=== PATIENT | male | born 1955 | race African-American/Black ===

== ENCOUNTER 2017-01-09 03:28 | Emergency (ER) | payer MEDICAID ==
[~2017-01-09] VITALS: Ht 182.9 cm; Wt 73.0 kg
[2017-01-09 03:46] VITALS: BP 131/62
[2017-01-09] MEDS ORDERED: IPRATROPIUM/ALBUTEROL 0.5-3(2.5)MG/3ML NEB HHN ONE ×2 (05:45→06:00)
== END 2017-01-09 07:14 | disposition home or self-care (01) ==
LOC: ER 05:50
DX: J45.901 Unspecified asthma with (acute) exacerbation (principal); Z99.81 Dependence on supplemental oxygen; J93.9 Pneumothorax, unspecified; Z98.890 Other specified postprocedural states
CPT/HCPCS: 94640; 99283; J7620

== ENCOUNTER 2017-03-20 13:40 | Emergency (ER) | payer MEDICAID ==
[~2017-03-20] VITALS: Ht 182.9 cm; Wt 73.0 kg
[2017-03-20] MEDS ORDERED: ALBU05 IH (13:46)
[2017-03-20] MEDS ORDERED: ALBUTEROL (0.083%) 2.5MG/3ML NEB HHN STA (18:10)
[2017-03-20] MEDS ORDERED: IPRATROPIUM BROMIDE (0.02%) 0.5MG/2.5ML NEB HHN STA (18:10)
[2017-03-20] MEDS ORDERED: PREDNISONE 20MG TABLET PO STA (18:10)
[2017-03-20 20:48] VITALS: BP 136/68
== END 2017-03-20 20:40 | disposition home or self-care (01) ==
LOC: ER 13:40
DX: J45.901 Unspecified asthma with (acute) exacerbation (principal)
CPT/HCPCS: 71010; 94640; 99283; J7512; J7611

== ENCOUNTER 2017-06-07 00:53 | Emergency (ER) | payer MEDICAID ==
[~2017-06-07] VITALS: Ht 182.9 cm; Wt 72.0 kg
[~2017-06-07 00:53] MED LIST: ALBU05 IH
[2017-06-07] MEDS ORDERED: IPRATROPIUM BROMIDE (0.02%) 0.5MG/2.5ML NEB HHN STA (01:04)
[2017-06-07] MEDS ORDERED: PREDNISONE 20MG TABLET PO STA (01:04)
[2017-06-07] MEDS ORDERED: ALBUTEROL (0.083%) 2.5MG/3ML NEB HHN STA (01:04)
[2017-06-07] MEDS ORDERED: IPRATROPIUM/ALBUTEROL 0.5-3(2.5)MG/3ML NEB HHN ONE (04:45)
[2017-06-07 05:30] VITALS: BP 109/67
== END 2017-06-07 06:40 | disposition home or self-care (01) ==
LOC: ER 00:53
DX: J45.901 Unspecified asthma with (acute) exacerbation (principal)
CPT/HCPCS: 71010; 94640; 99284; J7512; J7611; J7620; Z7610

== ENCOUNTER 2017-06-17 12:57 | Emergency (ER) | payer MEDICAID ==
[~2017-06-17] VITALS: Ht 182.9 cm; Wt 73.0 kg
[2017-06-17 13:11] VITALS: BP 132/72
== END 2017-06-17 14:37 | disposition left against medical advice (07) ==
LOC: ER 13:53
DX: Z53.21 Procedure and treatment not carried out due to patient leaving prior to being seen by health care provider (principal)

== ENCOUNTER 2017-06-17 22:49 | Emergency (ER) | payer MEDICAID ==
[~2017-06-17] VITALS: Ht 182.9 cm; Wt 72.0 kg
[2017-06-17 22:51] VITALS: BP 143/80
[2017-06-17] MEDS ORDERED: IPRATROPIUM BROMIDE (0.02%) 0.5MG/2.5ML NEB HHN STA (23:40)
[2017-06-17] MEDS ORDERED: PREDNISONE 20MG TABLET PO STA (23:40)
[2017-06-17] MEDS ORDERED: ALBUTEROL (0.083%) 2.5MG/3ML NEB HHN STA (23:40)
== END 2017-06-18 01:30 | disposition home or self-care (01) ==
LOC: ER 06-18 01:26
DX: J45.901 Unspecified asthma with (acute) exacerbation (principal)
CPT/HCPCS: 99283; J7512; J7611

== ENCOUNTER 2017-10-03 00:41 | Emergency (ER) | payer MEDICAID ==
[~2017-10-03] VITALS: Ht 182.9 cm; Wt 72.0 kg
[2017-10-03] MEDS ORDERED: IPRATROPIUM BROMIDE (0.02%) 0.5MG/2.5ML NEB HHN STA (01:28)
[2017-10-03] MEDS ORDERED: PREDNISONE 20MG TABLET PO STA (01:28)
[2017-10-03] MEDS ORDERED: ALBUTEROL (0.083%) 2.5MG/3ML NEB HHN STA (01:28)
[2017-10-03 03:35] VITALS: BP 122/79
== END 2017-10-03 04:02 | disposition home or self-care (01) ==
LOC: ER 01:07
DX: J45.901 Unspecified asthma with (acute) exacerbation (principal)
CPT/HCPCS: 94640; 99283; J7512; J7611

== ENCOUNTER 2018-03-29 05:42 | Emergency (ER) | payer SELFPAY ==
[~2018-03-29] VITALS: Ht 182.9 cm; Wt 73.0 kg
[2018-03-29] MEDS ORDERED: PREDNISONE 20MG TABLET PO STA (06:44)
[2018-03-29] MEDS ORDERED: ALBUTEROL (0.083%) 2.5MG/3ML NEB HHN STA (06:44)
[2018-03-29] MEDS ORDERED: IPRATROPIUM BROMIDE (0.02%) 0.5MG/2.5ML NEB HHN STA (06:44)
[2018-03-29 09:52] VITALS: BP 119/62
== END 2018-03-29 10:09 | disposition home or self-care (01) ==
LOC: ER 07:33
DX: J45.901 Unspecified asthma with (acute) exacerbation (principal); Z98.890 Other specified postprocedural states
CPT/HCPCS: 94644; 99285; J7512; J7611

== ENCOUNTER 2018-05-29 14:21 | Emergency (ER) | payer SELFPAY ==
[~2018-05-29] VITALS: Ht 182.9 cm; Wt 78.0 kg
[2018-05-29] MEDS ORDERED: ALBUTEROL (0.083%) 2.5MG/3ML NEB HHN STA (18:28)
[2018-05-29] MEDS ORDERED: PREDNISONE 20MG TABLET PO STA (18:28)
[2018-05-29] MEDS ORDERED: IPRATROPIUM BROMIDE (0.02%) 0.5MG/2.5ML NEB HHN STA (18:28)
[2018-05-29 20:16] VITALS: BP 145/77
== END 2018-05-29 21:10 | disposition home or self-care (01) ==
LOC: ER 21:01
DX: J45.901 Unspecified asthma with (acute) exacerbation (principal); F12.10 Cannabis abuse, uncomplicated; Z79.899 Other long term (current) drug therapy
CPT/HCPCS: 93005; 94644; 99285; J7512; J7611

== ENCOUNTER 2018-11-12 20:36 | Emergency (ER) | payer MEDICAID ==
[~2018-11-12] VITALS: Ht 182.9 cm; Wt 70.0 kg
[2018-11-12] MEDS ORDERED: METHYLPREDNISOLONE SOD SUCC 125 MG/2 ML VIAL IV STA (23:38)
[2018-11-12] MEDS ORDERED: ALBUTEROL (0.083%) 2.5MG/3ML NEB HHN STA (23:38)
[2018-11-12] MEDS ORDERED: IPRATROPIUM BROMIDE (0.02%) 0.5MG/2.5ML NEB HHN STA (23:38)
[2018-11-12] MEDS ORDERED: MAGNESIUM 2 G PREMIX 50 ML IV ONE (23:45)
[2018-11-12] MEDS ORDERED: KETOROLAC 30MG/ML VIAL IV ONE (23:45)
[2018-11-13 00:27] LABS: BASOPHILS % 0.8 % (0.0-2.0); EOSINOPHILS % 1.9 % (0.0-5.0); HEMATOCRIT. 38.2 % (42.0-52.0); HEMOGLOBIN. 12.9 g/dL (14.0-18.0); LYMPHOCYTES % 25.9 % (20.0-50.0); MEAN CORPUSCULAR HEMOGLOBIN 31.3 pg (28.0-32.0); MEAN CORPUSCULAR VOLUME 92.4 fL (80.0-94.0); MEAN PLATELET VOLUME 8.7 fl (7.4-10.4); MONOCYTES % 9.9 % (2.0-8.0); NEUTROPHILS % 61.5 % (40.0-76.0); PLATELET 187 x1000/uL (130-400); RED BLOOD CELL COUNT 4.13 mill/uL (4.7-6.1); RED CELL DISTRIBUTION WIDTH 15.3 % (11.6-14.6)
[2018-11-13 00:31] LABS: CHLORIDE 105 mEq/L (98-107)
[2018-11-13 04:27] VITALS: BP 117/70
== END 2018-11-13 04:36 | disposition home or self-care (01) ==
LOC: ER 20:36
DX: J45.909 Unspecified asthma, uncomplicated (principal); M25.512 Pain in left shoulder; F12.10 Cannabis abuse, uncomplicated; Z98.890 Other specified postprocedural states
CPT/HCPCS: 36415; 71045; 80053; 83880; 84484; 85025; 93005; 94640; 96365; 96375; 99284; J1885; J2930; J3475; J7611

== ENCOUNTER 2018-12-05 13:53 | Emergency (ER) | payer MEDICAID ==
[~2018-12-05] VITALS: Ht 182.9 cm; Wt 68.0 kg
[2018-12-05] MEDS ORDERED: KETOROLAC 30MG/ML VIAL IM ONE (14:30)
[2018-12-05 16:52] VITALS: BP 131/62
== END 2018-12-05 17:00 | disposition home or self-care (01) ==
LOC: ER 13:53
DX: M75.102 Unspecified rotator cuff tear or rupture of left shoulder, not specified as traumatic (principal); F12.10 Cannabis abuse, uncomplicated; J45.909 Unspecified asthma, uncomplicated
CPT/HCPCS: 73030; 96372; 99283; J1885; Z7610; A4565

== ENCOUNTER 2018-12-26 05:41 | Emergency (ER) | payer MEDICAID ==
[~2018-12-26] VITALS: Ht 182.9 cm; Wt 66.0 kg
[2018-12-26] MEDS ORDERED: SODIUM CHLORIDE 0.9% 1,000 ML IV ONE (06:13)
[2018-12-26] MEDS ORDERED: ONDANSETRON HCL 4MG/2ML INJ IV STA (06:13)
[2018-12-26] MEDS ORDERED: MECLIZINE 25MG TABLET PO ONE (06:15)
[2018-12-26 06:39] LABS: BASOPHILS % 0.7 % (0.0-2.0); EOSINOPHILS % 2.7 % (0.0-5.0); HEMATOCRIT. 36.8 % (42.0-52.0); HEMOGLOBIN. 12.4 g/dL (14.0-18.0); LYMPHOCYTES % 24.2 % (20.0-50.0); MEAN CORPUSCULAR HEMOGLOBIN 31.6 pg (28.0-32.0); MEAN CORPUSCULAR VOLUME 93.5 fL (80.0-94.0); MEAN PLATELET VOLUME 8.4 fl (7.4-10.4); MONOCYTES % 8.1 % (2.0-8.0); NEUTROPHILS % 64.3 % (40.0-76.0); PLATELET 242 x1000/uL (130-400); RED BLOOD CELL COUNT 3.94 mill/uL (4.7-6.1); RED CELL DISTRIBUTION WIDTH 15.1 % (11.6-14.6)
[2018-12-26 06:43] LABS: CHLORIDE 105 mEq/L (98-107)
[2018-12-26 08:47] VITALS: BP 133/78
== END 2018-12-26 08:48 | disposition home or self-care (01) ==
LOC: ER 05:41
DX: R42 Dizziness and giddiness (principal); J45.909 Unspecified asthma, uncomplicated; F17.210 Nicotine dependence, cigarettes, uncomplicated
CPT/HCPCS: 36415; 80053; 85025; 96374; 99283; J2405; J7030; J8597; Z7610

== ENCOUNTER 2020-03-10 14:30 | Emergency (ER) | payer MEDICAID ==
[~2020-03-10] VITALS: Ht 182.9 cm; Wt 63.5 kg
[2020-03-10 15:33] VITALS: BP 119/68
[2020-03-12] MEDS ORDERED: ASPI-1497 MT (08:20)
[2020-03-12] MEDS ORDERED: AMLO-371 MT (08:20)
[2020-03-12] MEDS ORDERED: ATOR10TA69 MT (08:20)
== END 2020-03-10 15:35 | disposition home or self-care (01) ==
LOC: ER 14:52
DX: U07.1 COVID-19 (principal); J45.909 Unspecified asthma, uncomplicated; F12.10 Cannabis abuse, uncomplicated
CPT/HCPCS: 99283; C9803; U0003